=== PATIENT | female | born 1990 | race Caucasian/White ===

== ENCOUNTER 2023-08-19 19:33 | Emergency (ER) | payer MEDICAID, SELFPAY ==
--- NOTE | ~2023-08-19 | US_ITS ---
EXAMINATION: US OBSTETRICAL ULTRASOUND CLINICAL INFORMATION: , vaginal spotting, left lower quadrant pain. Unknown LMP. COMPARISON: Pelvic ultrasound 06/05/2015. TECHNIQUE: Ultrasound of the maternal pelvis is performed using transabdominal and transvaginal transducers. Transvaginal imaging is performed due to inadequate visualization transabdominally. M-mode Doppler is also performed. FINDINGS: Limited evaluation secondary to patient body habitus. There is a single intrauterine gestational sac measuring 1 cm corresponding to a sonographic age of 5 weeks and 5 days. A discrete yolk sac or pole are not seen. No significant subchorionic bleed. The cervical length is approximately 3 cm. Limited evaluation of the right ovary measuring approximately 1.7 x 1 x 1.2 cm. The left ovary measures 5 x 4.2 x 4.8 cm with a 4.2 x 4.1 x 4.1 cm simple appearing cyst that is almost certainly benign and for which no imaging follow-up is recommended. No adnexal mass. No free fluid. US/US OB pelvic and transvaginal IMPRESSION: Single intrauterine gestational sac measuring 1 cm corresponding to a sonographic age of 5 weeks and 5 days. A yolk sac and pole are not visualized, possibly due to early gestation. Correlation with quantitative hCG and close attention on follow-up is recommended to ensure viability of the . A 4.2 cm simple appearing cyst in the left ovary is almost certainly benign and for which no imaging follow-up is recommended in an asymptomatic patient. However, if there is clinical concern for an acute ovarian pathology, then close monitoring and reimaging as clinically appropriate is recommended.
[2023-08-19 20:01] VITALS: BP 114/73; PULSE 108; RESP 18; TEMP 36.5; O2SAT 100; BMI 38.8
--- NOTE | 2023-08-19 20:05 | ED_ITS ---
HPI - General Adult General Chief complaint: Vaginal Bleeding Stated complaint: 8wks preg/bleeding History of Present Illness HPI narrative: Left without completion of treatment by ED provider Related Data Allergies Allergy/AdvReac Type Severity Reaction Status Date / Time fish derived [fish] Allergy Swelling Verified 08/19/23 20:06 shellfish derived Allergy Swelling Verified 08/19/23 20:06 PMF Social History Social History Advance Directives: No Advance Directives Information Provided: No Physical Exam ED Vital Signs: Vital Signs - 24 hr 08/19/23 20:01 Temperature 97.7 F Pulse Rate 108 H Respiratory Rate 18 Blood Pressure 114/73 Pulse Oximetry 100 Oxygen Delivery Method Room Air BMI result Body Mass Index 38.8 Course Course Course Narrative: RME: 33 yold female 8 weeks presents to the ED for vaginal spotting for the past couple of days. States lower abdominal cramping. labs and US ordered Medical Decision Making Lab Data 08/19/23 20:56 08/19/23 20:56 Labs: Lab Results 08/19/23 08/19/23 Range/Units 20:56 21:38 WBC 8.6 (4.8-10.8) X10*3/uL RBC 4.07 L (4.20-5.50) X10*6/uL Hgb 11.6 L (12.0-16.0) g/dl Hct 33.7 L (37.0-47.0) % MCV 82.8 (80.0-98.0) fL MCH 28.5 (27.0-33.0) pg MCHC 34.4 (31.0-35.0) g/dl RDW 12.6 (11.0-16.0) % Plt Count 279 (160-400) X10*3/uL MPV 10.3 (9.4-12.3) fL Immature Gran % (Auto) 0.5 H (0.0-0.4) % Neut % (Auto) 76.8 H (45-73) % Lymph % (Auto) 15.7 L (20-40) % [place] % (Auto) 5.6 (2-11) % Eos % (Auto) 1.2 (0-4) % Baso % (Auto) 0.2 (0-2) % Lymph # (Auto) 1.4 (1.2-4.9) X10*3/uL [place] # (Auto) 0.5 (0.1-1.2) X10*3/uL Eos # (Auto) 0.1 (0.0-0.4) X10*3/uL Baso # (Auto) 0.0 (0.0-0.2) X10*3/uL Abs Immat Gran (auto) 0.04 H (0.00-0.03) X10*3/uL Absolute Neuts (auto) 6.6 (2.0-8.3) x10*3/uL Absolute Nucleated RBC 0.000 (0.0-0.012) X10*3/uL Nucleated RBC % (auto) 0.0 (0.0-0.2) /100WBC PT 12.1 (11.1-13.3) SEC INR 1.0 (0.9-1.1) APTT 30.5 (26.0-36.8) SEC Sodium 139 (135-145) mmol/L Potassium 3.6 (3.3-5.1) mmol/L Chloride 104 (96-108) mmol/L Carbon Dioxide 24 (22-29) mmol/L Anion Gap 15 (12-20) BUN 10 (9-16) mg/dL Creatinine 0.59 (0.5-1.4) mg/dL Estim Creat Clear Calc 145.4 Estimated GFR > 60 Random Glucose 102 (60-115) mg/dL Calcium 9.5 (8.4-10.2) mg/dL Total Bilirubin 0.1 (0.0-1.0) mg/dL AST 30 (5-31) U/L ALT 68 H (0-31) U/L Alkaline Phosphatase 72 (39-117) U/L Total Protein 7.3 (6.5-8.0) g/dL Albumin 4.2 (3.5-5.0) g/dL Lipase 35 (8-78) U/L Beta HCG, Quant 85552 mIU/mL Urine Color Yellow Urine Appearance Clear Urine pH 6.0 (5.0-9.0) Ur Specific [place] 1.025 (1.005-1.025) Urine Protein Negative (Neg-Trace) mg/dL Urine Glucose (UA) Negative (Negative) mg/dL Urine Ketones Negative (Negative) mg/dL Urine Blood Negative (Negative) Urine Nitrite Negative (Negative) Ur Leukocyte Esterase Negative (Negative) Urine Test POSITIVE H (NEGATIVE) Blood Type B Positive Discharge Plan Discharge Clinical Impression: Threatened Patient Disposition: Left W/O Completing Treatment Discharge Date/Time: 08/20/23 02:21
[2023-08-19 21:01] LABS: MANUAL DIFF FLAG NO
[2023-08-19 21:02] LABS: Basophils Percent Auto 0.2 % (0-2); Eosinophils Absolute Auto 0.1 X10*3/uL (0.0-0.4); Eosinophils Percent Auto 1.2 % (0-4); Hematocrit 33.7 % (37.0-47.0); Hemoglobin 11.6 g/dl (12.0-16.0); Imm Gran Abs Auto 0.04 X10*3/uL (0.00-0.03); Imm Gran Pct Auto 0.5 % (0.0-0.4); Lymphocytes Absolute Auto 1.4 X10*3/uL (1.2-4.9); Lymphocytes Percent Auto 15.7 % (20-40); Mean Corpuscular HGB Conc 34.4 g/dl (31.0-35.0); Mean Corpuscular Hemoglobin 28.5 pg (27.0-33.0); Mean Corpuscular Volume 82.8 fL (80.0-98.0); Mean Platelet Volume 10.3 fL (9.4-12.3); Monocytes Absolute Auto 0.5 X10*3/uL (0.1-1.2); Monocytes Percent Auto 5.6 % (2-11); Neutrophils Absolute Auto 6.6 x10*3/uL (2.0-8.3); Neutrophils Percent Auto 76.8 % (45-73); Platelet Count 279 X10*3/uL (160-400); Red Blood Count 4.07 X10*6/uL (4.20-5.50); Red Cell Distribution Width 12.6 % (11.0-16.0); White Blood Count 8.6 X10*3/uL (4.8-10.8)
[2023-08-19 21:07] LABS: Prothrombin Time 12.1 SEC (11.1-13.3)
[2023-08-19 21:09] LABS: Partial Thromboplastin Time 30.5 SEC (26.0-36.8)
[2023-08-19 21:23] LABS: Alanine Aminotransferase 68 U/L (0-31); Albumin Level 4.2 g/dL (3.5-5.0); Alkaline Phosphatase 72 U/L (39-117); Anion Gap 15 (12-20); Aspartate Amino Transferase 30 U/L (5-31); Bilirubin Total 0.1 mg/dL (0.0-1.0); Blood Urea Nitrogen 10 mg/dL (9-16); Calcium 9.5 mg/dL (8.4-10.2); Carbon Dioxide 24 mmol/L (22-29); Chloride 104 mmol/L (96-108); Creatinine Clr Calc Pharmacy 145.4; Estimated Glomerular Filt Rate > 60; Glucose Random 102 mg/dL (60-115); Lipase 35 U/L (8-78); Potassium 3.6 mmol/L (3.3-5.1); Sodium 139 mmol/L (135-145); Total Protein 7.3 g/dL (6.5-8.0)
[2023-08-19 21:44] LABS: HCG Quantitative 18988 mIU/mL
[2023-08-19 21:45] LABS: UPreg QC Valid YES; Urine Pregnancy POSITIVE (NEGATIVE)
[2023-08-19 21:47] LABS: Appearance Urine Clear; Color Urine Yellow; Glucose Urine UA Negative (Negative); Leukocyte Esterase Urine Negative (Negative); Nitrite Urine Negative (Negative); Specific Gravity - Urine 1.025 (1.005-1.025); Urine Blood Negative (Negative); Urine Ketones Negative (Negative); Urine Protein Negative (Neg-Trace)
== END 2023-08-20 02:21 | disposition left against medical advice (07) ==
PROVIDERS: Physician Assistant; Emergency Provider Emergency Medicine
DX: O20.0 Threatened abortion (principal); O20.9 Hemorrhage in early pregnancy, unspecified; Z3A.08 8 weeks gestation of pregnancy; Z79.899 Other long term (current) drug therapy
CPT/HCPCS: 36415; 76801; 76817; 80053; 81003; 81025; 83690; 84702; 85025; 85610; 85730; 86900; 86901; 99282; 99284